=== PATIENT | male | born 1965 | race Caucasian/White ===

== ENCOUNTER 2016-09-27 19:25 | Emergency (ER) | payer OTHER ==
--- NOTE | 2016-09-27 19:35 | EDPHY ---
H & P - Personal History Tetanus Vaccine Date: < 10 - Medical/Surgical History Hx Asthma: No Hx Chronic Respiratory Disease: Yes Hx Diabetes: No Hx Cardiac Disease: No Hx Renal Disease: No Hx Cirrhosis: No Hx Alcoholism: No Hx HIV/AIDS: No Hx Splenectomy or Spleen Trauma: No Other PMH: SLEEP APNEA Time Seen by Provider: 09/27/16 19:28 HPI/ROS: CHIEF COMPLAINT: M1, "I can't tell what is real and what is not" HISTORY OF PRESENT ILLNESS: 51-year-old male a homeless arrives via police after he called 911 stating that people have been following him taking photos of him and he "cannot tell what is real and what is not." He is unsure whether he actually used methamphetamine recently or whether he hallucinated using methamphetamine recently. He moved to [place] 3 days ago from [place]. He denies diagnosed psychiatric history. He denies psychiatric medication history. He denies: Fever, chills, trismus, drooling, fetid odor or foul taste in mouth, suicidal or homicidal ideation. PRIMARY CARE PROVIDER: none REVIEW OF SYSTEMS: A ten point review of systems was performed and is negative with the exception of the items mentioned in the HPI PAST MEDICAL & SURGICAL HISTORY: No pertinent medical or surgical history SOCIAL HISTORY: homeless. Unsure whether he used methamphetamine or not 2 days ago. PHYSICAL EXAM (Prior to examination, patient consented to physical exam, hands were washed and my usual and customary physical exam procedures followed) 1) GENERAL: foul smelling, anxious appearing, alert and oriented. Rapid, tangential flight of ideas 2) HEAD: Normocephalic, atraumatic 3) HEENT: Pupils equal, round, reactive to light bilaterally. Sclera anicteric. Oropharynx: Patient will not allow me to examine his oropharynx. There is no facial asymmetry, nasolabial folds are symmetrical. 4) NECK: Full range of motion, no meningeal signs. 5) LUNGS: Clear auscultation bilaterally, no wheezes, no rhonchi, no retractions. 6) HEART: Regular rate and rhythm, no murmur, no heave, no gallop. 7) ABDOMEN: No guarding, no rebound, no focal tenderness, negative McBurney's,, 8) MUSCULOSKELETAL: Moving all extremities, no focal areas of tenderness, 9) BACK: no visual or palpable abnormality. 10) SKIN: No rash, no petechiae. 11) Psychiatric: Patient is oriented X 3, rapid, tangential, flight of ideas, anxious appearing. DIFFERENTIAL DIAGNOSIS: in no particular include but limited to acute psychosis, freida, schizophrenia (Irma Flaherty) Constitutional: Initial Vital Signs Temperature (C) 36.5 C 09/27/16 19:40 Heart Rate 81 09/27/16 19:40 Respiratory Rate 20 09/27/16 19:40 Blood Pressure 119/77 09/27/16 19:40 O2 Sat (%) 99 09/27/16 19:40 O2 Delivery Mode Room Air Allergies/Adverse Reactions: No Known Allergies Allergy (Unverified 09/27/16 20:04) Home Medications: Medication Instructions Recorded NK [No Known Home Meds] 03/06/13 Medical Decision Making ED Course/Re-evaluation: 7:34 p.m.: This patient is on an M1 hold . He has acute psychotic and manic features. he denies suicidal or homicidal ideation. He agrees to oral Ativan and agrees to laboratory studies and mental health evaluation. 9:08 p.m.: Informed by mental health braiding machine tender that because the patient's toxicology is positive for methamphetamine they would not be able to evaluate patient until tomorrow morning. He will remain under observation in the emergency department. At this time he is calm and cooperative. 2:00 a.m.: Patient has been re-evaluated with serial examinations. He has been resting comfortably. Care turned over to Dr. Param Jaimes. Patient resting. (Irma Flaherty) Other Provider: Patient signed out to me at 0700. At 9:50, patient has been re-evaluated by mental health and is no longer paranoid or altered. They recommend discharge home, and feel that patient is safe for discharge. (Jonathan Hawkins) - Data Points Laboratory Results: Laboratory Results 09/27/16 19:37 09/27/16 19:37 Medications Given: Discontinued Medications Lorazepam (Ativan) 1 mg PO EDNOW ONE Stop: 09/27/16 19:44 Last Admin: 09/27/16 20:00 Dose: 1 mg Departure - Departure Disposition: Home, Routine, Self-Care Clinical Impression: Acute psychosis, Methamphetamine abuse Condition: Good Instructions: Methamphetamine Abuse (ED) Referrals: Patient,NotPresent [Primary Care Provider] - As per Instructions
[2016-09-27] MEDS ORDERED: LORazepam 1 MG TAB PO ONE (19:43)
[2016-09-27 19:55] LABS: % IMMATURE GRANULYOCYTES 0.4 % (0.0-1.1); ABSOLUTE IMMATURE GRANULOCYTES 0.03 10^3/uL (0.00-0.10); ADD DIFF? NO; ADD MORPH? NO; ADD SCAN? NO; ATYPICAL LYMPHOCYTE FLAG 10 (0-99); FRAGMENT RBC FLAG 0 (0-99); HEMATOCRIT 37.8 % (40.0-51.0); HEMOGLOBIN 13.4 g/dL (13.7-17.5); LEFT SHIFT FLG 0 (0-99); LIPEMIA HEMOLYSIS FLAG 90 (0-99); MEAN CELL HEMOGLOBIN 29.9 pg (27.9-34.1); MEAN CELL HEMOGLOBIN CONCENTR. 35.4 g/dL (32.4-36.7); MEAN CELL VOLUME 84.4 fL (81.5-99.8); MEAN PLATELET VOLUME 8.9 fL (8.7-11.7); PLATELET CLUMPS FLAG 10 (0-99); PLATELET COUNT 220 10^3/uL (150-400); RED BLOOD CELL COUNT 4.48 10^6/uL (4.40-6.38); RED CELL DISTRIBUTION WIDTH 13.7 % (11.5-15.2)
[2016-09-27 20:01] LABS: ANION GAP 15 mEq/L (8-16); CALCIUM 9.7 mg/dL (8.5-10.4); CARBON DIOXIDE 21 mEq/l (22-31); CHLORIDE 97 mEq/L (97-110); ETHANOL SERUM < 10 mg/dL (0-10); GLOMERULAR FILTRATION RATE > 60; GLUCOSE 91 mg/dL (70-100); POTASSIUM 3.8 mEq/L (3.5-5.2); SALICYLATE < 1.0 mg/dL (2.0-20.0); SODIUM 133 mEq/L (134-144)
[2016-09-28 07:49] VITALS: RESP 18; O2SAT 95
[2016-09-28 10:01] VITALS: BP 121/74; PULSE 82; TEMP 98.1
== END 2016-09-28 10:04 | disposition home or self-care (01) ==
DX: F15.10 Other stimulant abuse, uncomplicated (principal); F29 Unspecified psychosis not due to a substance or known physiological condition
CPT/HCPCS: 80305; G0480